=== PATIENT | female | born 1940 ===

== ENCOUNTER → 2018-05-05 21:13 | Outpatient (REF) | payer MEDICARE, OTHER, SELFPAY ==
[2018-05-05 21:43] LABS: Add Manual Diff / Slide Review NO; Basophils Percent Auto 0.6 % (0-2); Hematocrit 44.4 % (36-46); Hemoglobin 14.5 g/dL (12.0-16.0); Lymphocytes Percent Auto 17.8 % (25-40); Mean Corpuscular HGB Conc 32.5 % (30-36); Mean Corpuscular Hemoglobin 26.9 PG (26-34); Mean Corpuscular Volume 82.7 fL (80-100); Monocytes Percent Auto 6.5 % (3-14); Neutrophils Absolute Auto 5700 /uL (3000-5900); Neutrophils Percent Auto 74.1 % (50-75); Platelet Count 297 X10^3/uL (150-400); Red Blood Cell Count 5.37 X10^6/uL (4.0-5.2); Red Cell Distribution Width 15.3 % (11.6-14.8); White Blood Cell Count 7.7 X10^3/uL (4.5-11.0)
[2018-05-05 21:48] LABS: Alanine Aminotransferase 28 IU/L (9-52); Albumin 4.4 g/dL (3.5-5.0); Albumin Globulin Ratio 1.6 (1.0-2.8); Alkaline Phosphatase 88 U/L (38-126); Aspartate Aminotransferase 25 IU/L (14-36); Bilirubin Total 0.6 mg/dL (0.2-1.3); Blood Urea Nitrogen 12 mg/dL (7-17); Calcium 9.8 mg/dL (8.4-10.2); Carbon Dioxide 29 mmol/L (22-32); Chloride 105 mmol/L (98-107); Cholesterol 162 mg/dL (140-199); Estimated Glomerular Filt Rate > 60.0 mL/min (>60); Gamma Glutamyl Transpeptidase 21 U/L (12-43); Globulin 2.7 g/dL (1.7-4.1); Glucose 114 mg/dL (80-110); HDL Cholesterol 54 mg/dL (40-60); HEMOLYSIS < 15 (0-50); Iron 56 ug/dL (37-170); LDL Cholesterol Calculated 77 mg/dL (<100); Lactate Dehydrogenase 460 U/L (313-618); Potassium 4.2 mmol/L (3.4-5.1); Sodium 148 mmol/L (137-145); Total Protein 7.1 g/dL (6.3-8.2); Triglycerides 157 mg/dL (35-150); Uric Acid 4.9 mg/dL (2.5-6.2)
[2018-05-05 22:04] LABS: Free T3, Triiodothyronine Free 3.43 pg/mL (2.77-5.27); High Sensitivity CRP - Cardiac < 0.1 mg/L (1.0-3.0)
[2018-05-05 22:18] LABS: Cortisol Random 12.2 ug/dL
[2018-05-05 22:52] LABS: Folate 19.8 ng/mL (2.76-20.0)
[2018-05-08 10:54] LABS: Vitamin B12 483 pg/mL (239-931)
[2018-05-08 14:30] LABS: Hemoglobin A1C% w Est Avg Glu 5.9 % (4.0-6.0)
[2018-05-09 08:52] LABS: Pregnenolone 23 ng/dL (22-237)
[2018-05-09 13:55] LABS: Dehydroepiandrosterone Sulfate 77 mcg/dL (7-177)
[2018-05-09 14:50] LABS: Albumin 4.3 g/dL (3.6-5.1); Sex Hormone Binding Globulin 98 nmol/L (14-73); Testosterone, Bioavailable 4.2 ng/dL (0.5-8.8); Testosterone, Total 46 ng/dL (2-45); Testosterone,Free 2.1 pg/mL (0.3-5.0)
[2018-05-09 15:54] LABS: Progesterone < 0.5 ng/mL; Triiodothyronine T3 Total 102 ng/dL (76-181)
[2018-05-09 15:55] LABS: Estradiol < 15 pg/mL
[2018-05-09 19:29] LABS: Zinc 65 mcg/dL (60-130)
[2018-05-10 09:48] LABS: Selenium 203 mcg/L (63-160)
[2018-05-10 15:58] LABS: Triiodothyronine T3 Reverse 23 ng/dL (8-25)
[2018-05-12 15:28] LABS: Vitamin D 25 Hydroxy (D3) 30 ng/mL (30.0-100.0)
[2018-05-15 14:10] LABS: Insulin Level Total 5.1
[2018-05-15 14:16] LABS: Gamma-Tocopherol < 1.0
== END ==
LOC: LAB 21:13
PROVIDERS: Visit Provider Nurse Practitioner
DX: G31.84 Mild cognitive impairment of uncertain or unknown etiology (principal); I10 Essential (primary) hypertension; E78.00 Pure hypercholesterolemia, unspecified
CPT/HCPCS: 80053; 80061; 82525; 82533; 82627; 82670; 82728; 82746; 82977; 83540; 83615; 84144; 84255; 84439; 84446; 84480; 84481; 84482; 84550; 84630; 85025; 86140

== ENCOUNTER → 2018-05-09 21:36 | Outpatient (REF) | payer MEDICARE, OTHER, SELFPAY ==
[2018-05-13 11:10] LABS: Gamma-Tocopherol < 1.0 mg/L (< 4.4)
== END ==
LOC: LAB 21:36
PROVIDERS: Visit Provider Nurse Practitioner
DX: R73.01 Impaired fasting glucose (principal); G31.84 Mild cognitive impairment of uncertain or unknown etiology
CPT/HCPCS: 84446